=== PATIENT | male | born 1980 | race Hispanic/Latino ===

== ENCOUNTER 2018-01-06 18:01 | Emergency (ER) | payer SELFPAY | END 2018-01-06 20:23 | disposition home or self-care (01) | LOC: EDH 18:01 | DX: R07.89 Other chest pain (principal); J06.9 Acute upper respiratory infection, unspecified | CPT/HCPCS: 71045; 93005 ==

== ENCOUNTER 2021-02-20 11:59 | Emergency (ER) | payer OTHER ==
[2021-02-20] MEDS ORDERED: HYDROCODONE/ACETAMINOPHEN 5/325 MG TAB ONE (12:44)
[2021-02-20] MEDS ORDERED: KETOROLAC TROMETHAMINE 30MG/ML ONE (12:44)
== END 2021-02-20 14:49 | disposition home or self-care (01) ==
LOC: EDH 11:59
DX: S22.42XA Multiple fractures of ribs, left side, initial encounter for closed fracture (principal); S27.322A Contusion of lung, bilateral, initial encounter; W11.XXXA Fall on and from ladder, initial encounter; Y93.89 Activity, other specified; Y92.89 Other specified places as the place of occurrence of the external cause; Y99.8 Other external cause status
CPT/HCPCS: 71250; 74176; 96372; 99285; J1885